=== PATIENT | female | born 1965 | race Caucasian/White ===

== ENCOUNTER 2020-07-01 21:37 | Emergency (ER) | payer OTHER ==
[2020-07-01 21:43] VITALS: TEMP 98.2; BMI 26.6
[2020-07-01] MEDS ORDERED: LACTATED RINGERS SOLUTION 1000 ML INFUS.BAG IV ONE (21:50)
[2020-07-01] MEDS ORDERED: methylPREDNISolone NA SUCC 125 MG/2 ML VIAL IVPB ONE (21:50)
[2020-07-01] MEDS ORDERED: FAMOTIDINE 20 MG/50 ML IVPB 20 MG/50 ML MG IVPB ONE (21:50)
[2020-07-01] MEDS ORDERED: EPINEPHrine 1:1,000 0.3 MG/0.3 ML SYR IM ONE (22:31)
[2020-07-01] MEDS ORDERED: EPINEPHrine/PF 1 MG/1 ML (1:1,000) AMPULE ONE (22:32)
[2020-07-02 04:11] VITALS: BP 144/82; PULSE 102
== END 2020-07-02 04:11 | disposition home or self-care (01) ==
LOC: JER 21:37
PROC: 3E033NZ Introduction of Analgesics, Hypnotics, Sedatives into Peripheral Vein, Percutaneous Approach (ICD-10-PCS; principal; 2020-07-01)
PROC: 3E033GC Introduction of Other Therapeutic Substance into Peripheral Vein, Percutaneous Approach (ICD-10-PCS; 2020-07-01)
PROC: 3E023NZ Introduction of Analgesics, Hypnotics, Sedatives into Muscle, Percutaneous Approach (ICD-10-PCS; 2020-07-01)
DX: T78.02XA Anaphylactic reaction due to shellfish (crustaceans), initial encounter (principal)
CPT/HCPCS: 99284-25

== ENCOUNTER 2020-07-17 09:10 | Emergency (ER) | payer OTHER ==
[2020-07-17 09:18] VITALS: BMI 28.6
[2020-07-17] MEDS ORDERED: SODIUM CHLORIDE 1,000 ML IV ONE (11:08)
[2020-07-17] MEDS ORDERED: METOCLOPRAMIDE HCL INJECTION 10 MG/2 ML VIAL IVPUSH ONE (11:08)
[2020-07-17] MEDS ORDERED: ACETAMINOPHEN 325 MG TABLET (FP) PO ONE (11:08)
[2020-07-17] MEDS ORDERED: ACETAMINOPHEN 325 MG TABLET (FP) ONE (11:14)
[2020-07-17] MEDS ORDERED: METOCLOPRAMIDE HCL INJECTION 10 MG/2 ML VIAL ONE (11:14)
[2020-07-17 11:53] LABS: BASO % 0.4 % (0-2.0); EOS % 5.5 % (0-4.5); HEMATOCRIT 38.2 % (32.4-45.2); LYMPH % 34.7 % (8-40); MCH 28.3 pg (25.7-33.7); MEAN CELL VOLUME 83.1 fl (80-96); MEAN PLT VOLUME 9.3 fl (7.5-11.1); MONO % 7.1 % (3.8-10.2); NEUT % 52.3 % (42.8-82.8); PLATELET COUNT 222 K/MM3 (134-434); RDW 15.2 % (11.6-15.6); WHITE BLOOD COUNT 7.5 K/mm3 (4.0-10.0)
[2020-07-17 12:07] LABS: CHLORIDE 106 mmol/L (98-107); SODIUM 141 mmol/L (136-145)
[2020-07-17 12:09] LABS: ALBUMIN 3.5 g/dl (3.4-5.0); CALCIUM 9.1 mg/dL (8.5-10.1)
[2020-07-17 12:10] LABS: ANION GAP 4 MMOL/L (8-16); BLOOD UREA NITROGEN 10.6 mg/dL (7-18); CO2 30 mmol/L (21-32); GLUCOSE,RANDOM 128 mg/dL (74-106); LIPASE 59 U/L (73-393)
[2020-07-17 12:13] LABS: CREATININE 0.6 mg/dL (0.55-1.3); SGOT/AST 15 U/L (15-37); SGPT/ALT 28 U/L (13-61)
[2020-07-17 12:14] LABS: BILIRUBIN,TOTAL 0.7 mg/dL (0.2-1); TOT PROT 7.2 g/dl (6.4-8.2)
[2020-07-17 12:15] LABS: ALK PHOS 78 U/L (45-117)
[2020-07-17 14:32] VITALS: BP 120/62; PULSE 88; TEMP 97.8
== END 2020-07-17 15:27 | disposition home or self-care (01) ==
LOC: JER 09:10
PROC: 3E033NZ Introduction of Analgesics, Hypnotics, Sedatives into Peripheral Vein, Percutaneous Approach (ICD-10-PCS; principal; 2020-07-17)
PROC: 3E0337Z Introduction of Electrolytic and Water Balance Substance into Peripheral Vein, Percutaneous Approach (ICD-10-PCS; 2020-07-17)
DX: R07.9 Chest pain, unspecified (principal); J30.2 Other seasonal allergic rhinitis
CPT/HCPCS: 36415; 70450-TC; 71046-TC-FY; 80053; 82550; 82553; 83690; 84484; 85025; 93005; 93010; 99285-25

== ENCOUNTER 2022-06-08 08:15 | Emergency (ER) | payer OTHER ==
[2022-06-08 08:28] VITALS: BP 138/83; PULSE 85; RESP 18; TEMP 98.4; BMI 27.6
[2022-06-08] MEDS ORDERED: ACETAMINOPHEN 1000 MG/100 ML BAG IVPB ONE (09:57)
[2022-06-08] MEDS ORDERED: ACETAMINOPHEN INJECTION 100 ML IVPB ONE (10:06)
[2022-06-08 10:43] LABS: BASO % 0.4 % (0-2.0); EOS % 1.9 % (0-4.5); HEMATOCRIT 39.4 % (32.4-45.2); HEMOGLOBIN 13.2 GM/dL (10.7-15.3); LYMPH % 35.9 % (8-40); MCH 27.4 pg (25.7-33.7); MCHC 33.6 g/dl (32.0-36.0); MEAN CELL VOLUME 81.6 fl (80-96); MEAN PLT VOLUME 8.8 fl (7.5-11.1); MONO % 6.3 % (3.8-10.2); NEUT % 55.5 % (42.8-82.8); PLATELET COUNT 237 10^3/uL (134-434); RBC 4.83 M/mm3 (3.60-5.2); RDW 15.7 % (11.6-15.6); WHITE BLOOD COUNT 6.4 K/mm3 (4.0-10.0)
[2022-06-08 10:52] LABS: EPI CELLS 23 /uL (0-25.1); HYALINE CASTS 0 /uL (0-3.1); URINE APPEARANCE CLEAR; URINE BACTERIA 377 /uL (0-1359); URINE BILIRUBIN NEGATIVE (NEGATIVE); URINE COLOR YELLOW; URINE GLUCOSE (UA) NEGATIVE (NEGATIVE); URINE KETONE NEGATIVE (NEGATIVE); URINE LEUK ESTERASE 1+ (NEGATIVE); URINE NITRITE NEGATIVE (NEGATIVE); URINE PROTEIN NEGATIVE (NEGATIVE); URINE RBC 16 /uL (0-23.9); URINE WBC 16 /uL (0-25.8)
[2022-06-08 10:56] LABS: INR 1.01 (0.83-1.09); PROTHROMBIN TIME (PATIENT) 11.7 SEC (9.7-13.0)
[2022-06-08 11:00] LABS: ACTIVATED PTT 34.9 SECONDS (25.2-36.5)
[2022-06-08 11:04] LABS: BLOOD UREA NITROGEN 9.3 mg/dL (7-18); CALCIUM 8.5 mg/dL (8.5-10.1)
[2022-06-08 11:05] LABS: ALBUMIN 3.3 g/dl (3.4-5.0)
[2022-06-08 11:07] LABS: CREATININE 0.6 mg/dL (0.55-1.3)
[2022-06-08 11:09] LABS: BILIRUBIN,TOTAL 0.7 mg/dL (0.2-1); TOT PROT 7.3 g/dl (6.4-8.2)
[2022-06-08] MEDS ORDERED: LIDOCAINE 5% TOPICAL PATCH TP ONE (11:30)
[2022-06-08] MEDS ORDERED: LIDOCAINE 5% TOPICAL PATCH ONE (11:46)
[2022-06-08] MEDS ORDERED: LIDOCAINE PATCH REMOVAL MC ONE (22:00)
== END 2022-06-08 14:04 | disposition home or self-care (01) ==
LOC: JER 08:15
PROC: 3E033GC Introduction of Other Therapeutic Substance into Peripheral Vein, Percutaneous Approach (ICD-10-PCS; principal; 2022-06-08)
PROC: 3E033NZ Introduction of Analgesics, Hypnotics, Sedatives into Peripheral Vein, Percutaneous Approach (ICD-10-PCS; 2022-06-08)
PROC: 3E033GC Introduction of Other Therapeutic Substance into Peripheral Vein, Percutaneous Approach (ICD-10-PCS; 2022-06-08)
PROC: 3E033GC Introduction of Other Therapeutic Substance into Peripheral Vein, Percutaneous Approach (ICD-10-PCS; 2022-06-08)
PROC: 3E0337Z Introduction of Electrolytic and Water Balance Substance into Peripheral Vein, Percutaneous Approach (ICD-10-PCS; 2022-06-08)
PROC: 3E023GC Introduction of Other Therapeutic Substance into Muscle, Percutaneous Approach (ICD-10-PCS; 2022-06-08)
DX: S20.212A Contusion of left front wall of thorax, initial encounter (principal); R07.89 Other chest pain; R42 Dizziness and giddiness; Y99.9 Unspecified external cause status; Z20.822 Contact with and (suspected) exposure to COVID-19
CPT/HCPCS: 36415; 71046-TC-FY; 74176-TC; 80053; 81003; 83690; 84484; 85025; 85610; 85730; 87086; 93005; 93010; 99285-25; C9803-CS; U0003; U0005

== ENCOUNTER 2023-04-27 09:50 | Emergency (ER) | payer OTHER ==
[2023-04-27 10:05] VITALS: BP 132/69; PULSE 83; RESP 18; TEMP 97.9; BMI 26.9
[2023-04-27] MEDS ORDERED: ACETAMINOPHEN 500 MG TABLET (FP) ONE (11:32)
[2023-04-27] MEDS: ACETAMINOPHEN 500 MG TABLET (FP) PO ONE (12:15)
== END 2023-04-27 14:01 | disposition home or self-care (01) ==
LOC: JER 09:50
DX: R51.9 Headache, unspecified (principal); M54.2 Cervicalgia; M54.50 Low back pain, unspecified; W00.0XXA Fall on same level due to ice and snow, initial encounter
CPT/HCPCS: 70450-TC; 72100-TC-FY; 72125-TC; 99284-25

== ENCOUNTER 2023-10-18 20:28 | Emergency (ER) | payer OTHER ==
[2023-10-18 20:35] VITALS: BP 123/79; PULSE 92; RESP 19; TEMP 98.1; BMI 25.0
[2023-10-18 21:15] LABS: BASO % 0.5 % (0-2.0); EOS % 2.9 % (0-4.5); HEMATOCRIT 40.4 % (32.4-45.2); HEMOGLOBIN 13.7 GM/dL (10.7-15.3); LYMPH % 38.3 % (8-40); MCH 28.6 pg (25.7-33.7); MCHC 33.9 g/dl (32.0-36.0); MEAN CELL VOLUME 84.3 fl (80-96); MEAN PLT VOLUME 8.6 fl (7.5-11.1); MONO % 6.5 % (3.8-10.2); NEUT % 51.8 % (42.8-82.8); PLATELET COUNT 259 10^3/uL (134-434); RDW 15.2 % (11.6-15.6)
[2023-10-18 21:20] LABS: EPI CELLS 7 /uL (0-25.1); HYALINE CASTS 0 /uL (0-3.1); PH,URINE 5.5 (5.0-8.0); URINE APPEARANCE CLEAR; URINE BACTERIA 15 /uL (0-1359); URINE BILIRUBIN NEGATIVE (NEGATIVE); URINE COLOR YELLOW; URINE GLUCOSE (UA) NEGATIVE (NEGATIVE); URINE KETONE NEGATIVE (NEGATIVE); URINE LEUK ESTERASE TRACE (NEGATIVE); URINE NITRITE NEGATIVE (NEGATIVE); URINE PROTEIN NEGATIVE (NEGATIVE); URINE RBC 19 /uL (0-23.9); URINE UROBILINOGEN 0.2 mg/dL (0.2-1.0); URINE WBC 22 /uL (0-25.8)
[2023-10-18] MEDS ORDERED: ACETAMINOPHEN INJECTION 100 ML IVPB ONE (21:22)
[2023-10-18] MEDS: ACETAMINOPHEN 1000 MG/100 ML BAG IVPB ONE (21:30)
[2023-10-18] MEDS: SODIUM CHLORIDE 0.9% 500 ML INFUS.BAG IV ONE (21:30)
[2023-10-18 21:37] LABS: POTASSIUM 3.9 mmol/L (3.5-5.1)
[2023-10-18 21:39] LABS: CALCIUM 9.1 mg/dL (8.5-10.1)
[2023-10-18 21:40] LABS: ALBUMIN 3.4 g/dl (3.4-5.0); BLOOD UREA NITROGEN 18.9 mg/dL (7-18)
[2023-10-18 21:43] LABS: CREATININE 0.5 mg/dL (0.55-1.3)
[2023-10-18 21:44] LABS: BILIRUBIN,TOTAL 0.6 mg/dL (0.2-1); TOT PROT 7.5 g/dl (6.4-8.2)
[2023-10-18] MEDS: KETOROLAC TROMETHAMINE 30 MG/1 ML VIAL IVPUSH ONE (22:55)
[2023-10-18] MEDS ORDERED: KETOROLAC TROMETHAMINE 30 MG/1 ML VIAL ONE (22:57)
[2023-10-18] MEDS ORDERED: GABAPENTIN 100 MG CAPSULE ONE (23:37)
[2023-10-18] MEDS: GABAPENTIN 100 MG CAPSULE PO ONE (23:40)
== END 2023-10-18 23:41 | disposition home or self-care (01) ==
LOC: JER 20:28
PROC: 3E033NZ Introduction of Analgesics, Hypnotics, Sedatives into Peripheral Vein, Percutaneous Approach (ICD-10-PCS; principal; 2023-10-18)
PROC: 3E0333Z Introduction of Anti-inflammatory into Peripheral Vein, Percutaneous Approach (ICD-10-PCS; 2023-10-18)
DX: E11.40 Type 2 diabetes mellitus with diabetic neuropathy, unspecified (principal); R10.9 Unspecified abdominal pain; M25.552 Pain in left hip; Z79.84 Long term (current) use of oral hypoglycemic drugs
CPT/HCPCS: 36415; 74176-TC; 80053; 81003; 85025; 87086; 99284-25; J0131